=== PATIENT | male | born 1995 | race Caucasian/White ===

== ENCOUNTER → 2022-02-11 | Outpatient (CLI) | payer OTHER ==
[~2022-02-11] MED LIST: ISOVUE-370 76% 100ML VIAL As Ordered ONE
== END ==
LOC: EDBD 08:30 → M RAD 08:31
PROVIDERS: ATTEND Physician Assistant
DX: R22.1 Localized swelling, mass and lump, neck (principal)
CPT/HCPCS: 70491; Q9967

== ENCOUNTER 2022-05-24 09:42 | Day surgery (SDC) | payer OTHER ==
[~2022-05-24] VITALS: Ht 167.6 cm; Wt 59.0 kg
[2022-05-24] MEDS ORDERED: LR 1,000 ML IV SCH ×3 (09:50→12:10)
[2022-05-24] MEDS ORDERED: MIDAZOLAM INJ 2MG/2ML VIAL As Ordered ONE (10:01)
[2022-05-24] MEDS ORDERED: fentaNYL 100 MCG/2 ML INJECTION As Ordered ONE (10:01)
[2022-05-24] MEDS ORDERED: ONDANSETRON 4MG 2ML VIAL As Ordered ONE (10:02)
[2022-05-24] MEDS ORDERED: ACETAMINOPHEN 1000MG 100ML IV BAG As Ordered ONE (10:02)
[2022-05-24] MEDS ORDERED: propofoL 200 MG/20 ML VIAL As Ordered ONE (10:08)
[2022-05-24] MEDS ORDERED: LIDOCAINE 2% 100MG/5ML SDV (FOR ANES.) As Ordered ONE ×2 (10:09→12:04)
[2022-05-24] MEDS ORDERED: LIDOCAINE W/EPINEPHRINE 1% 20ML VIAL As Ordered ONE (10:46)
[2022-05-24] MEDS ORDERED: CLINDAMYCIN 600MG/50ML PREMIX BAG As Ordered ONE (10:58)
[2022-05-24] MEDS ORDERED: HYDROMORPHONE HCL 0.5 MG/ 0.5 ML SYRINGE IV PRN (11:35)
[2022-05-24] MEDS ORDERED: fentaNYL 100 MCG/2 ML INJECTION IV PRN (11:35)
[2022-05-24] MEDS ORDERED: ONDANSETRON 4MG 2ML VIAL IV PRN ×2 (11:35→12:10)
[2022-05-24] MEDS ORDERED: oxyCODONE 5MG TAB PO PRN (11:35)
[2022-05-24] MEDS ORDERED: MEPERIDINE 50 MG/ML 1ML VIAL As Ordered ONE (11:36)
[2022-05-24] MEDS ORDERED: ANEXSIA, NORCO 7.5MG/325MG TABLET(HYDROCODONE/APAP) PO PRN (12:10)
[2022-05-24 13:30] VITALS: BP 137/72
== END 2022-05-24 13:35 | disposition home or self-care (01) ==
LOC: M SDC 09:42
PROVIDERS: ATTEND Otolaryngology
DX: L72.0 Epidermal cyst (principal); Z88.1 Allergy status to other antibiotic agents
CPT/HCPCS: 21552; 88305; J1100; J2175; J2405